=== PATIENT | male | born 1960 | race Caucasian/White ===

== ENCOUNTER 2018-01-21 07:20 | Emergency (ER) | payer OTHER ==
[2018-01-21] MEDS: SOD CHLORIDE 0.9% 1,000 ML IV (07:49)
[2018-01-21 07:59] LABS: ADD MAN DIFF? NO
[2018-01-21 08:03] LABS: WHITE BLOOD COUNT 10.2 10^3/ul (4.8-10.8)
[2018-01-21 08:03] LABS: BASOPHIL # 0.1 10^3/ul (0.0-0.1); BASOPHILS % 0.7 % (0.0-2.0); EOSINOPHILS # 0.4 10^3/ul (0.0-0.5); EOSINOPHILS % 4.1 % (0.0-7.0); HEMATOCRIT 46.5 % (42.0-52.0); HEMOGLOBIN 16.3 g/dl (14.0-18.0); LYMPHOCYTES # 3.8 10^3/ul (0.8-2.9); LYMPHOCYTES % 37.7 % (15.0-51.0); MEAN CORPUSCULAR HGB CONC 35.1 g/dl (32.0-37.0); MEAN CORPUSCULAR VOLUME 91.2 fl (82.0-101.0); MEAN PLATELET VOLUME 9.9 fl (7.4-10.4); MONOCYTE # 0.8 10^3/ul (0.3-0.9); MONOCYTES % 8.3 % (0.0-11.0); NEUTROPHILS % 48.9 % (39.0-77.0); PLATELET COUNT 301 10^3/UL (140-415); RED CELL DISTRIBUTION WIDTH 11.9 % (11.5-14.5)
[2018-01-21 08:20] LABS: ALANINE AMINOTRANSFERASE 39 IU/L (13-69); ALBUMIN 4.5 g/dl (3.3-4.9); ALBUMIN/GLOBULIN RATIO 1.45; ALKALINE PHOSPHATASE 58 IU/L (42-121); AMYLASE 78 U/L (11-123); ANION GAP 13 (8-16); ASPARTATE AMINO TRANSFERASE 19 IU/L (15-46); BILIRUBIN,INDIRECT 0.9 mg/dl (0-1.1); BILIRUBIN,TOTAL 0.9 mg/dl (0.2-1.3); BLOOD UREA NITROGEN 11 mg/dl (7-20); CALCIUM 9.6 mg/dl (8.4-10.2); CARBON DIOXIDE 31 mmol/L (21-31); CHLORIDE 100 mmol/L (97-110); CREATININE 0.86 mg/dl (0.61-1.24); GLUCOSE 99 mg/dl (70-220); LIPASE 131 U/L (23-300); POTASSIUM 3.7 mmol/L (3.5-5.1); SODIUM 140 mmol/L (135-144); TOTAL PROTEIN 7.6 g/dl (6.1-8.1)
[2018-01-21 08:29] LABS: PROTIME 14.4 Sec (11.9-14.9); PT RATIO 1.1
[2018-01-21 08:30] LABS: PARTIAL THROMBOPLASTIN TIME 28.5 Sec (25.0-35.0)
[2018-01-21 08:36] LABS: TROPONIN-I < 0.012 ng/ml (0.000-0.120)
[2018-01-21] MEDS: SOD CHLORIDE 0.9% 100 ML (10:15)
[2018-01-21] MEDS: IOHEXOL 300MG/ML 150 ML BTL (10:15)
[2018-01-21] MEDS: LIDOCAINE/MYLANTA 40 ML BTL PO (11:28)
[2018-01-21] MEDS: BELLADONNA/PHENOBARBITAL TAB PO (11:28)
== END 2018-01-21 17:10 | disposition home or self-care (01) ==
LOC: E/R 07:20
DX: R00.2 Palpitations (principal); I10 Essential (primary) hypertension
CPT/HCPCS: 71045; 74177; 80053; 82150; 83690; 84484; 85025; 85610; 85730; 93005; 99285-25